=== PATIENT | female | born 1960 | race Caucasian/White ===

== ENCOUNTER 2018-04-27 12:37 | Observation (INO) | payer MEDICARE, OTHER ==
[2018-04-27] VITALS (9 sets, daily range): BP systolic 81–97; BP diastolic 50–59
[~2018-04-27] VITALS: Ht 157.5 cm; Wt 64.0 kg
--- NOTE | 2018-04-27 12:54 | ED General ---
General Stated Complaint: LOW BP/WEAKNESS Source of Information: Patient Exam Limitations: No Limitations History of Present Illness Date Seen by Provider: Apr 27, 2018 Time Seen by Provider: 12:49 Initial Comments to ER per private vehicle from Dr. Farmer's office in [place]. Reports were of low blood pressure, 90s over 50s. Patient presented to [facility] on April 17 with abdominal pain and diarrhea. A CT scan revealed colitis, she also had a urinary tract infection. She was given Omnicef. She then re-presented on the with hypotension, was admitted and released 04/23. She was given fluids but blood pressure failed to improve as expected. An echocardiogram was done revealing a moderate pericardial effusion. She was discharged, followed up with Dr. Farmer's office today, was hypotensive at his office and was referred to ER for cardiac evaluation there was some concern that she cardiology evaluation for the pericardial effusion. she denies fevers or chills. She denies chest pain or palpitations. She states that she is dyspneic on exertion which is a new symptom for about the past 1-2 weeks. Her diarrhea and abdominal pain have improved. She is still on omnicef. there is some concern but no official diagnosis of inflammatory bowel disease. Timing/Duration: 1-2 Days Severity: Moderate Associated Systoms: No Chest Pain Allergies and Home Medications Allergies Coded Allergies: No Known Drug Allergies (Unverified , 04/27/18) Patient Home Medication List Home Medication List Reviewed: Yes Review of Systems Constitutional: see HPI; No chills, No fever EENTM: see HPI Respiratory: see HPI, dyspnea on exertion; No hemoptysis, No short of breath Cardiovascular: no symptoms reported, see HPI; No chest pain Genitourinary: no symptoms reported Musculoskeletal: no symptoms reported Skin: no symptoms reported Psychiatric/Neurological: No Symptoms Reported Past Cvtptwl-Sckkwk-Ildccu Hx Patient Social History Recent Foreign Travel: No Contact w/Someone Who Travel: No Physical Exam Vital Signs Vital Signs - First Documented 04/27/18 04/27/18 12:50 17:40 Temp 98.2 Pulse 82 Resp 16 B/P (MAP) 110/69 (83) Pulse Ox 95 O2 Delivery Room Air Capillary Refill : General Appearance: No Apparent Distress, WD/WN, Other (she is in no distress. Blood pressure 117/69 on the second reading, 110/60 on the first reading. Heart rate is 70 sinus without ectopy. She speaks in full sentences without distress.) Eyes: Bilateral Eye Normal Inspection, Bilateral Eye PERRL, Bilateral Eye EOMI HEENT: PERRL/EOMI, TMs Normal Neck: Full Range of Motion, Normal Inspection, Other (there is no jugular vein distention or muffled heart tones at this time) Respiratory: Lungs Clear, Normal Breath Sounds, No Accessory Muscle Use, No Respiratory Distress Cardiovascular: Regular Rate, Rhythm, Normal Peripheral Pulses Gastrointestinal: Normal Bowel Sounds, Non Tender, Soft Extremity: Normal Capillary Refill, Normal Inspection Neurologic/Psychiatric: Alert, Oriented x3 Skin: Normal Color, Warm/Dry; No Rash Focused Exam Lactate Level 04/27/18 14:17: Lactic Acid Level 1.02 Lactic Acid Level Progress/Results/Core Measures Suspected Sepsis SIRS Temperature: Pulse: Respiratory Rate: Laboratory Tests 04/27/18 12:50: White Blood Count 5.3 Blood Pressure / Mean: 04/27/18 14:17: Lactic Acid Level 1.02 Laboratory Tests 04/27/18 12:50: Creatinine 0.89, Platelet Count 71L, Total Bilirubin 2.3H Results/Orders Lab Results Laboratory Tests Test 04/27/18 12:50 04/27/18 14:17 04/27/18 15:32 Range/Units White Blood Count 5.3 4.3-11.0 10^3/uL Red Blood Count 3.40 L 4.35-5.85 10^6/uL Hemoglobin 10.3 L 11.5-16.0 G/DL Hematocrit 31 L 35-52 % Mean Corpuscular Volume 90 80-99 FL Mean Corpuscular Hemoglobin 30 25-34 PG Mean Corpuscular Hemoglobin Concent 34 32-36 G/DL Red Cell Distribution Width 14.4 10.0-14.5 % Platelet Count 71 L 130-400 10^3/uL Mean Platelet Volume 11.3 H 7.4-10.4 FL Neutrophils (%) (Auto) 84 H 42-75 % Lymphocytes (%) (Auto) 8 L 12-44 % Monocytes (%) (Auto) 6 0-12 % Eosinophils (%) (Auto) 2 0-10 % Basophils (%) (Auto) 0 0-10 % Neutrophils # (Auto) 4.5 1.8-7.8 X 10^3 Lymphocytes # (Auto) 0.4 L 1.0-4.0 X 10^3 Monocytes # (Auto) 0.3 0.0-1.0 X 10^3 Eosinophils # (Auto) 0.1 0.0-0.3 10^3/uL Basophils # (Auto) 0.0 0.0-0.1 10^3/uL Erythrocyte Sedimentation Rate 99 H 0-30 MM/HR Sodium Level 136 135-145 MMOL/L Potassium Level 3.8 3.6-5.0 MMOL/L Chloride Level 106 98-107 MMOL/L Carbon Dioxide Level 23 21-32 MMOL/L Anion Gap 7 5-14 MMOL/L Blood Urea Nitrogen 19 H 7-18 MG/DL Creatinine 0.89 0.60-1.30 MG/DL Estimat Glomerular Filtration Rate > 60 BUN/Creatinine Ratio 21 Glucose Level 95 70-105 MG/DL Calcium Level 9.5 8.5-10.1 MG/DL Total Bilirubin 2.3 H 0.1-1.0 MG/DL Aspartate Amino Transf (AST/SGOT) 45 H 5-34 U/L Alanine Aminotransferase (ALT/SGPT) 70 H 0-55 U/L Alkaline Phosphatase 66 40-136 U/L Troponin I < 0.30 <0.30 NG/ML C-Reactive Protein High Sensitivity 7.44 H 0.00-0.50 MG/DL B-Type Natriuretic Peptide 48.2 <100.0 PG/ML Total Protein 7.2 6.4-8.2 GM/DL Albumin 3.5 3.2-4.5 GM/DL Lactic Acid Level 1.02 0.50-2.00 MMOL/L Urine Color YELLOW Urine Clarity CLEAR Urine pH 7 5-9 Urine Specific Forsan 1.010 L 1.016-1.022 Urine Protein 1+ H NEGATIVE Urine Glucose (UA) NEGATIVE NEGATIVE Urine Ketones 1+ H NEGATIVE Urine Nitrite NEGATIVE NEGATIVE Urine Bilirubin NEGATIVE NEGATIVE Urine Urobilinogen 1 NORMAL MG/DL Urine Leukocyte Esterase 1+ H NEGATIVE Urine RBC (Auto) 1+ H NEGATIVE Urine RBC 0-2 /HPF Urine WBC 0-2 /HPF Urine Squamous Epithelial Cells 5-10 /HPF Urine Crystals NONE /LPF Urine Bacteria NONE /HPF Urine Casts NONE /LPF Urine Mucus NEGATIVE /LPF Urine Culture Indicated NO My Orders Orders - TONY BALDWIN APRN Erythrocyte Sedimentation Rate (04/27/18 12:47) Hs C Reactive Protein (04/27/18 12:47) Ekg Tracing (04/27/18 12:47) Cbc With Automated Diff (04/27/18 12:47) Comprehensive Metabolic Panel (04/27/18 12:47) Ua Culture If Indicated (04/27/18 12:47) Chest 1 View, Ap/Pa Only (04/27/18 12:47) Troponin I (04/27/18 12:47) BNP (04/27/18 12:47) Blood Culture (04/27/18 14:04) Lactic Acid Analyzer (04/27/18 14:04) Anti-Nuclear Ab (Kellen) Analyzer (04/27/18 15:33) General/Regular (04/27/18 Lunch) Echo W Doppler/Color Flow (04/27/18 16:16) Vital Signs/I&O 04/27/18 04/27/18 04/27/18 04/27/18 12:50 17:24 17:36 17:38 Temp 98.2 98.2 Pulse 82 86 79 82 Resp 16 20 14 B/P (MAP) 110/69 (83) 100/56 89/55 (66) Pulse Ox 95 98 90 04/27/18 04/27/18 04/27/18 04/27/18 17:40 17:45 18:00 18:15 B/P (MAP) 81/50 (60) 82/50 (61) 89/58 (68) Pulse Ox 92 O2 Delivery Room Air 04/27/18 04/27/18 18:30 18:45 B/P (MAP) 90/59 (69) 91/55 (67) Capillary Refill : ECG Initial ECG Impression Date: Apr 27, 2018 Initial ECG Impression Time: 12:46 Initial ECG Rate: 80 Initial ECG Rhythm: Normal Sinus Initial ECG Intervals: Normal Initial ECG Impression: Normal Comment no ST segment changes to suggest ischemia or pericarditis. Normal sinus rate of 80 no ectopy normal intervals Diagnostic Imaging Diagonstic Imaging: Xray Plain Films/CT/US/NM/MRI: chest Comments NAME: MARVIN SANCHEZ [facility] REC#: [id number] PT STATUS: REG ER : 1960 PHYSICIAN: TONY BALDWIN APRN ADMIT DATE: 04/27/18/ER Draft Date of Exam:04/27/18 CHEST 1 VIEW, AP/PA ONLY Indication: Pain Comparison: None Findings: Upright portable view of the chest is obtained. Heart size is normal. The pulmonary vessels appear unremarkable. No pneumothorax or mediastinal widening. There is abnormal density in the left lung base likely combination of mild basilar atelectasis or infiltrate and small left pleural effusion. There is minimal right basilar atelectasis or infiltrate also present. Upper lungs are clear. Impression: Bilateral basilar atelectasis or infiltrate with small left pleural effusion. Dictated on workstation # [id number] Dict: 04/27/18 1307 Trans: 04/27/18 1309 CV [id number] Interpreted by: LINDEN ALTAMIRANO DO Electronically signed by: Departure Communication (Admissions) Time/Spoke to Admitting Phy: 16:[address] Ayala. He agrees to consult, echocardiogram in the morning. Spoke to Dr. Tirado she likely echocardiogram done today with results called to Dr. Ayala. Admit to cardiac stepdown. Blood pressures 100 systolic at this time. No distress. No jugular venous distention. 1502-blood pressure has been down to 92/55. Heart rate remains 70s and 80s.currently blood pressure [address] Ayala finishing up in the catheter lab and I'll discuss the case with him. Impression Primary Impression: Pericardial effusion Additional Impressions: Pleural effusion Inflammatory disorder Disposition: 01 HOME, SELF-CARE Condition: Stable Admissions Decision to Admit Reason: Admit from ER (General) Decision to Admit/Date: Apr 27, 2018 Time/Decision to Admit Time: 16:23 Departure-Patient Inst. Referrals: NO,LOCAL PHYSICIAN (PCP/Family) Primary Care Physician Copy Copies To 1: LORE FARMER MD, PETER J APRN Apr 27, 2018 12:54
[2018-04-27 13:00] LABS: BASOPHILS % (AUTO) 0 % (0-10); EOSINOPHILS # (AUTO) 0.1 10^3/uL (0.0-0.3); EOSINOPHILS % (AUTO) 2 % (0-10); HEMATOCRIT 31 % (35-52); HEMOGLOBIN 10.3 G/DL (11.5-16.0); LYMPHOCYTES # (AUTO) 0.4 X 10^3 (1.0-4.0); LYMPHOCYTES % (AUTO) 8 % (12-44); MEAN CORPUSCULAR HEMOGLOBIN 30 PG (25-34); MEAN CORPUSCULAR HGB CONC 34 G/DL (32-36); MEAN CORPUSCULAR VOLUME 90 FL (80-99); MEAN PLATELET VOLUME 11.3 FL (7.4-10.4); MONOCYTES # (AUTO) 0.3 X 10^3 (0.0-1.0); MONOCYTES % (AUTO) 6 % (0-12); NEUTROPHILS # (AUTO) 4.5 X 10^3 (1.8-7.8); NEUTROPHILS % (AUTO) 84 % (42-75); PLATELET COUNT 71 10^3/uL (130-400); RED CELL DISTRIBUTION WIDTH 14.4 % (10.0-14.5); WHITE BLOOD COUNT 5.3 10^3/uL (4.3-11.0)
[2018-04-27] MEDS ORDERED: SULF-222 (13:10)
[2018-04-27] MEDS ORDERED: CEFU500T63 (13:10)
--- NOTE | 2018-04-27 13:10 | Diagnostic Imaging Report ---
Indication: Pain Comparison: None Findings: Upright portable view of the chest is obtained. Heart size is normal. The pulmonary vessels appear unremarkable. No pneumothorax or mediastinal widening. There is abnormal density in the left lung base likely combination of mild basilar atelectasis or infiltrate and small left pleural effusion. There is minimal right basilar atelectasis or infiltrate also present. Upper lungs are clear. Impression: Bilateral basilar atelectasis or infiltrate with small left pleural effusion. Dictated by: Dictated on workstation # [id number]
[2018-04-27 13:21] LABS: ALANINE AMINOTRANSFERASE 70 U/L (0-55); ALBUMIN 3.5 GM/DL (3.2-4.5); ALKALINE PHOSPHATASE 66 U/L (40-136); BILIRUBIN,TOTAL 2.3 MG/DL (0.1-1.0); BUN/CREATININE RATIO 21; CALCIUM 9.5 MG/DL (8.5-10.1); CARBON DIOXIDE 23 MMOL/L (21-32); CHLORIDE 106 MMOL/L (98-107); CREATININE SERUM 0.89 MG/DL (0.60-1.30); GFR ESTIMATED > 60; GLUCOSE 95 MG/DL (70-105); POTASSIUM 3.8 MMOL/L (3.6-5.0); SODIUM 136 MMOL/L (135-145); TOTAL PROTEIN 7.2 GM/DL (6.4-8.2)
[2018-04-27 13:27] LABS: ERYTHROCYTE SEDIMENTATION RATE 99 MM/HR (0-30)
[2018-04-27 15:39] LABS: BILIRUBIN,URINE NEGATIVE (NEGATIVE); CLARITY,URINE CLEAR; COLOR,URINE YELLOW; GLUCOSE, URINE (UA) NEGATIVE (NEGATIVE); KETONES,URINE 1+ (NEGATIVE); LEUKOCYTE ESTERASE ,URINE 1+ (NEGATIVE); NITRITE,URINE NEGATIVE (NEGATIVE); PH,URINE 7 (5-9); PROTEIN,URINE 1+ (NEGATIVE); UROBILINOGEN,URINE 1 MG/DL (NORMAL)
[2018-04-27 15:48] LABS: RBC,URINE 0-2 /HPF; WBC,URINE 0-2 /HPF
[2018-04-27] MEDS ORDERED: NS IV 1000 ML 1,000 ML ONE (18:05)
[2018-04-27] MEDS ORDERED: CATHETER FLUSH 10 ML SYR IV PRN (18:15)
[2018-04-27] MEDS: NS IV 1000 ML 1,000 ML IV SCH (18:16)
[2018-04-27] MEDS ORDERED: RT-ALBUTEROL SULF 2.5 MG/3 ML PRE-MIX VIAL INH PRN (20:00)
[2018-04-27] MEDS: CEFDINIR 300 MG (OMNICEF) CAP PO SCH (20:53)
[2018-04-27] MEDS ORDERED: ONDANSETRON 4 MG/2 ML (SDV) Z0FRAN IVP PRN (21:00)
[2018-04-27] MEDS ORDERED: ACETAMINOPHEN 500 MG TAB (TYLENOL) PO PRN (21:00)
[2018-04-27] MEDS ORDERED: ALPRAZolam 0.25 MG (XANAX) TAB PO PRN (21:00)
[2018-04-27] MEDS ORDERED: fentaNYL INJECTION 100 MCG/2 ML AMP IVP PRN (21:00)
[2018-04-27] MEDS ORDERED: CALCIUM CARBONATE 500 MG (TUMS) TAB.CHEW PO PRN (21:00)
[2018-04-27] MEDS ORDERED: HYDROcodone/APAP 5 MG/325 MG (LORTAB) TAB PO PRN (21:00)
[2018-04-28] MEDS: NS IV 1000 ML 1,000 ML IV SCH (02:16)
[2018-04-28 03:41] LABS: BASOPHILS % (AUTO) 1 % (0-10); EOSINOPHILS # (AUTO) 0.1 10^3/uL (0.0-0.3); EOSINOPHILS % (AUTO) 2 % (0-10); HEMATOCRIT 28 % (35-52); HEMOGLOBIN 8.9 G/DL (11.5-16.0); LYMPHOCYTES # (AUTO) 0.7 X 10^3 (1.0-4.0); LYMPHOCYTES % (AUTO) 25 % (12-44); MEAN CORPUSCULAR HEMOGLOBIN 29 PG (25-34); MEAN CORPUSCULAR HGB CONC 32 G/DL (32-36); MEAN CORPUSCULAR VOLUME 91 FL (80-99); MEAN PLATELET VOLUME 11.2 FL (7.4-10.4); MONOCYTES # (AUTO) 0.4 X 10^3 (0.0-1.0); MONOCYTES % (AUTO) 14 % (0-12); NEUTROPHILS # (AUTO) 1.7 X 10^3 (1.8-7.8); NEUTROPHILS % (AUTO) 59 % (42-75); PLATELET COUNT 75 10^3/uL (130-400); RED BLOOD COUNT 3.08 10^6/uL (4.35-5.85); RED CELL DISTRIBUTION WIDTH 14.4 % (10.0-14.5); WHITE BLOOD COUNT 2.9 10^3/uL (4.3-11.0)
[2018-04-28 04:00] VITALS: BP 96/53
[2018-04-28 04:08] LABS: ALANINE AMINOTRANSFERASE 50 U/L (0-55); ALBUMIN 2.9 GM/DL (3.2-4.5); ALKALINE PHOSPHATASE 57 U/L (40-136); BILIRUBIN,TOTAL 0.9 MG/DL (0.1-1.0); BUN/CREATININE RATIO 19; CALCIUM 8.2 MG/DL (8.5-10.1); CARBON DIOXIDE 20 MMOL/L (21-32); CHLORIDE 110 MMOL/L (98-107); CREATININE SERUM 0.75 MG/DL (0.60-1.30); GFR ESTIMATED > 60; GLUCOSE 93 MG/DL (70-105); POTASSIUM 3.6 MMOL/L (3.6-5.0); SODIUM 136 MMOL/L (135-145)
--- NOTE | 2018-04-28 05:58 | Pulmonary Consultation ---
History of Present Illness History of Present Illness Date of Consultation 04/28/18 05:53 Time Seen by Provider: 05:53 Date of Admission History of Present Illness 58yo with hx of recent dx of moderate pericardial effusion and hypotension. Pt was admitted to [facility] on 04/23 and then discharged. F/u visit at Dr. Thorpe's office patient was hypotensive so she was sent to ED. Pt denies F/NS/C. No CP or palpitations. Pt does have exertional dyspnea worsening over the last 1-2 wks. Pt has also been on omnicef as an out patient. I am consulted for ICU management. Allergies and Home Medications Allergies Coded Allergies: No Known Drug Allergies (Unverified , 04/27/18) Past Ubvwpbz-Khkulg-Aixaii Hx Patient Social History Alcohol Use: Occasionally Uses Recreational Drug Use: No Smoking Status: Former Smoker Type Used: Cigarettes Former Smoker, Quit: May 07, 1992 Recent Foreign Travel: No Contact w/Someone Who Travel: No Recent Infectious Disease Expo: No Recent Hopitalizations: Yes (04-17-18 at [place] for Colitis) Physical Abuse: No Sexual Abuse: No Mistreated: No Fear: No Seasonal Allergies Seasonal Allergies: No Past Medical History Surgeries: No (neck (2 buldging discs)) Respiratory: No Pneumonia Cardiac: Yes (pericardial effusion) Neurological: No Genitourinary: No Gastrointestinal: Yes Colitis Musculoskeletal: No Endocrine: No HEENT: No Cancer: No Psychosocial: No Nursing Suicide Risk Score: 0 Integumentary: No Blood Disorders: No Adverse Reaction/Blood Tranf: No Review of Systems Time Seen by Provider: 06:14 Constitutional: Weakness, Malaise; No: Fever, Chills, Sweats, Other Exam Exam Vital Signs Date Time Temp Pulse Resp B/P (MAP) Pulse Ox O2 Delivery O2 Flow Rate FiO2 04/28/18 04:00 93 Room Air 04/28/18 01:00 79 04/28/18 00:00 93 Room Air 04/27/18 23:38 98.4 75 15 93/52 (66) 93 Room Air 04/27/18 21:00 93 Room Air 04/27/18 20:00 93 Room Air 04/27/18 19:50 98.6 78 14 97/58 (71) 93 Room Air 04/27/18 19:43 82 92 21 04/27/18 19:00 76 7/5/18 18:45 91/55 (67) 04/27/18 18:30 90/59 (69) 04/27/18 18:15 89/58 (68) 04/27/18 18:00 82/50 (61) 04/27/18 17:45 81/50 (60) 04/27/18 17:40 92 Room Air 04/27/18 17:38 82 04/27/18 17:36 98.2 79 14 89/55 (66) 90 04/27/18 17:24 86 20 100/56 98 04/27/18 12:50 98.2 82 16 110/69 (83) 95 I & O 04/28/18 06:59 Intake Total 1500 ml Output Total 1100 ml Balance 400 ml General Appearance: No Apparent Distress, WD/WN, Anxious, Other (she is in no distress. Blood pressure 117/69 on the second reading, 110/60 on the first reading. Heart rate is 70 sinus without ectopy. She speaks in full sentences without distress.) HEENT: PERRL/EOMI, TMs Normal Neck: Full Range of Motion, Normal Inspection, Other (there is no jugular vein distention or muffled heart tones at this time) Respiratory: Lungs Clear, Normal Breath Sounds, No Accessory Muscle Use, No Respiratory Distress Cardiovascular: Regular Rate, Rhythm, Normal Peripheral Pulses Capillary Refill: Less Than 3 Seconds Extremity: Normal Capillary Refill, Normal Inspection Neurologic/Psychiatric: Alert, Oriented x3 Skin: Normal Color, Warm/Dry; No Rash Results Lab Laboratory Tests 04/27/18 12:50 04/28/18 03:10 Assessment/Plan Assessment/Plan Hypotension with pericardial effusion - hyptension has improved with IVF. RN states urine is concentrated however UO has improved through the night. -Cardiology is following and is aware -Echo shows moderate pericardial effusion with no chamber collapse -Check random cortisol -LORAINE is pending -Give liter bolus of LR over 2 hrs. High ESR and CRP associated with pericardial effusion and pleural effusion - LORAINE is pending -Ill start solumedrol 125 x 1 then 40 Q6 Hypothyroid - new Dx -Start Synthroid 50 PO daily Dehydration with Metabolic acidosis -repeat lactic acid -give 1 liter bolus of LR Pancytopenia -check peripheral smear -consider oncology consult -repeat labs -PT/INR, PTT Ddimer, fibrinogen I've discussed patient and plan of care with Dr. Tirado, and Dr. Ayala. I've also discussed patient with medical staff. Secondary to pericardial effusion, hypotension, pancytopenia this is a very complex patient. Dr. Ayala recommend transferring patient for possible pericardial window and definitive diagnosis. Pt will also need to see hematology and probably rheumatology too. I have contacted [facility] for transfer and they are accepting patient for transfer. Critical Care: Critically Ill Patient Time spent with patient (mins): 120 EPIFANIO RODRÍGUEZ DO Apr 28, 2018 05:58
[2018-04-28] MEDS ORDERED: LACTATED RINGERS 1,000 ML IV ONE ×2 (06:15→06:19)
[2018-04-28] MEDS ORDERED: LACTATED RINGERS 1,000 ML IV SCH (06:15)
[2018-04-28 07:00] VITALS: BP 105/71
[2018-04-28 07:15] LABS: ABSOLUTE RETIC # 39 10e9/L (24-90); BASOPHILS % (AUTO) 1 % (0-10); EOSINOPHILS % (AUTO) 2 % (0-10); HEMATOCRIT 27 % (35-52); HEMOGLOBIN 8.7 G/DL (11.5-16.0); LYMPHOCYTES # (AUTO) 0.6 X 10^3 (1.0-4.0); LYMPHOCYTES % (AUTO) 26 % (12-44); MEAN CORPUSCULAR HEMOGLOBIN 29 PG (25-34); MEAN CORPUSCULAR HGB CONC 32 G/DL (32-36); MEAN CORPUSCULAR VOLUME 91 FL (80-99); MONOCYTES # (AUTO) 0.3 X 10^3 (0.0-1.0); MONOCYTES % (AUTO) 11 % (0-12); NEUTROPHILS # (AUTO) 1.5 X 10^3 (1.8-7.8); NEUTROPHILS % (AUTO) 61 % (42-75); PLATELET COUNT 82 10^3/uL (130-400); RED BLOOD COUNT 2.96 10^6/uL (4.35-5.85); RED CELL DISTRIBUTION WIDTH 14.2 % (10.0-14.5); WHITE BLOOD COUNT 2.4 10^3/uL (4.3-11.0)
[2018-04-28 07:27] LABS: MAGNESIUM 2.1 MG/DL (1.8-2.4); PHOSPHORUS 2.9 MG/DL (2.3-4.7)
[2018-04-28 07:41] LABS: FIBRIN DEGRADATION PRODUCTS 1.34 UG/ML (0.00-0.49); INR 1.2 (0.8-1.4); PROTHROMBIN TIME PATIENT 14.9 SEC (12.2-14.7)
[2018-04-28 07:50] LABS: ANISOCYTOSIS SLIGHT; BAND NEUTROPHILS 5 %; BASOPHILS % (MANUAL) 0 %; EOSINOPHILS % (MANUAL) 2 %; FREE T4 (FREE THYROXINE) 0.67 NG/DL (0.70-1.48); LYMPHOCYTES % (MANUAL) 19 %; MONOCYTES % (MANUAL) 4 %; NEUTROPHILS % (MANUAL) 70 %; POLYCHROMASIA SLIGHT
--- NOTE | 2018-04-28 07:58 | Diagnostic Imaging Report ---
Indication: Pleural effusion. Comparison made with prior examination of 04/27/2018. Findings: Heart size is normal. There is bibasilar atelectasis and/or pneumonitis. There is a small left pleural effusion. No pneumothorax. Mediastinum unremarkable. Impression: Bibasilar atelectasis and/or pneumonitis and small left pleural effusion. Dictated by: Dictated on workstation # [id number]
[2018-04-28 08:00] VITALS: BP 112/71
[2018-04-28] MEDS: CEFDINIR 300 MG (OMNICEF) CAP PO SCH (08:21)
[2018-04-28 08:23] VITALS: BP 112/71
[2018-04-28 09:00] VITALS: BP 116/72
[2018-04-28] MEDS ORDERED: methylPREDNISolone 125 MG (Solu-MEDROL) VIAL IVP NR (09:00)
--- NOTE | 2018-04-28 09:12 | Consultation-Cardiology ---
HPI-Cardiology Cardiology Consultation: Date of Consultation 04/28/18 Date of Admission Attending Physician Rima Toro DO Admitting Physician Chanell,Local Physician Consulting Physician Javier AYALA MD HPI: Time Seen by Provider: 09:15 Chief Complaint: Fatigue This is a 58-year-old female who sees Dr. Thorpe. On 04/17/2018 she presented to [facility] ER with colitis. She presented again to the ER on 2017 and was given IV fluids again. An echocardiogram done on 04/21/2018 showed moderate pericardial effusion. Patient continues to have hypotension with systolic blood pressure of 80 mmHg. She presented again to Dr. Thorpe's office with significant fatigue and was transferred to [facility]. She complains of weakness but denies any significant shortness of breath or chest pain. She is found to have severe hypothyroidism. Elevated inflammatory markers. Pancytopenia. Review of Systems-Cardiology Review of Systems Constitutional: As described under HPI; No As described under HPI, No no symptoms reported, No chills, No fever, No lightheadedness; malaise, tiredness Eyes: No As described under HPI, No no symptoms reported, No blindness, No blurred vision, No contact lenses, No drainage, No decreased acuity, No foreign body sensation, No pain, No vision change Ears/Nose/Throat: No As described under HPI, No no symptoms reported, No chronic hearing loss, No ear discharge, No ear pain, No nasal drainage, No ulcerations Respiratory: No no symptoms reported; As described under HPI; No As described under HPI, No cough, No orthopnea, No shortness of breath, No SOB with excertion Cardiovascular: No no symptoms reported; As described under HPI; No As described under HPI, No chest pain, No edema, No irregular heart rate, No lightheadedness, No palpitations Gastrointestinal: No no symptoms reported, No As described under HPI, No abdomen distended, No abdominal pain, No blood streaked bowels, No constipation , No diarrhea, No nausea, No vomiting, No stool coloration changes Genitourinary: No As described under HPI, No burning, No dysuria, No discharge , No frequency, No flank pain, No hematuria, No urgency : Yes : No Musculoskeletal: No no symptoms reported, No As describe under HPI, No back pain, No gout, No joint pain, No joint swelling, No muscle pain, No muscle stiffness, No neck pain, No other Skin: No no symptoms reported, No As described under HPI, No change in color, No change in hair/nails, No dryness, No lesions, No lumps, No rash, No other, No skin related problems, No ulcerations, No rash on exposed areas, No ulcerations on exposed areas Psychiatric/Neurological: No anxiety, No depression, No seizure, No focal weakness, No syncope Hematologic: No bleeding abnormalities FML-[id number] Hx Patient Social History Alcohol Use: Occasionally Uses Recreational Drug Use: No Smoking Status: Former Smoker Type Used: Cigarettes Recent Foreign Travel: No Recent Infectious Disease Expo: No Hospitalization with Isolation: Denies Physical Abuse Screen: No Sexual Abuse: No Past Medical History PMH As described under Assessment. Allergies and Home Medications Allergies Coded Allergies: No Known Drug Allergies (Unverified , 04/27/18) Home Medications Levothyroxine Sodium 50 Mcg Tablet, 50 MCG PO 0915 Prescribed by: RIMA TORO on 04/28/18 1032 Methylprednisolone Sod Succ/Pf 40 Mg/1 Ml Vial, 40 MG IV Q6HR Prescribed by: RIMA TORO on 04/28/18 1032 Patient Home Medication List Home Medication List Reviewed: Yes Physical Exam-Cardiology Physical Exam Vital Signs/I&O 04/28/18 04/28/18 04/28/18 04/28/18 01:00 04:00 04:00 06:56 Temp 98.2 Pulse 79 78 87 Resp 16 B/P (MAP) 96/53 (67) Pulse Ox 94 93 O2 Delivery Room Air Room Air 04/28/18 04/28/18 04/28/18 04/28/18 07:00 08:00 08:22 08:22 Pulse 74 87 B/P (MAP) 105/71 (82) 112/71 (85) Pulse Ox 92 92 O2 Delivery Room Air Room Air Room Air Room Air 04/28/18 04/28/18 04/28/18 04/28/18 08:23 08:38 09:00 10:00 Temp 97.9 Pulse 90 85 82 Resp 14 B/P (MAP) 112/71 (85) 116/72 (87) 122/74 (90) Pulse Ox 92 92 O2 Delivery Room Air Room Air Room Air Room Air 7/6/18 11:30 B/P (MAP) 04/28/18 00:00 Intake Total 300 ml Output Total 300 ml Balance 0 ml Capillary Refill : Less Than 3 Seconds Constitutional: appears stated age, AAO x 3; No apparent distress; well- developed, well-nourished HEENT: PERRL; No normal ENT inspection, No TMs normal, No pharynx normal, No scleral icterus (R), No scleral icterus (L), No pale conjunctivae (R), No pale conjunctivae (L), No photophobia, No TM abnormal (R), No TM abnormal (L), No pharyngeal erythema, No tonsillar exudate, No other, No discharge, No EOMI; hearing is well preserved; No hard of hearing; oral hygience is good; No ulceration, No xanthelasmas are seen Neck: No non-tender, No full range of motion, No supple, No normal inspection, No carotid bruit, No limited range of motion, No lymphadenopathy (R), No lymphadenopathy (L), No tender lateral, No tender midline, No thyromegaly, No other; carotid pulses are 2 + bilaterally; No with good upstrokes Respiratory: No accessory muscle use, No respiratory distress, No chest tender , No chest expansion is symmetric; chest is bilaterally symmetric; No lungs clear to percussion; lungs clear to auscultation; No crackles, No rhonchi, No rales, No stridor, No wheezing, No pleural rub, No other Cardiovascular: regular rate-rhythm; No irregularly irregular, No extra beats, No parasternal heave is noted, No JVD, No edema, No bradycardia, No tachycardia , No point of maximal impulse, No cardiac thrills are palpable; S1 and S2; No gallop/S3, No gallop/S4, No diastolic murmur, No systolic murmur, No friction rub, No click, No other Gastrointestinal: No tender, No soft, No round, No distended, No pulsatile mass , No organomegaly, No guarding, No rebound, No tenderness, No hernia, No mass, No audible bowel sounds, No abnormal bowel sounds, No abdominal bruits, No spleenomegaly, No other Genital/Rectal: No normal genital exam, No normal rectal exam, No heme negative stool, No normal rectal tone, No normal vaginal exam, No blood at urethral meatus, No decreased rectal tone, No heme positive stool, No tenderness , No other Extremities: No normal range of motion, No non-tender, No normal inspection, No pedal edema, No calf tenderness, No normal capillary refill, No pelvis stable , No calf tenderness, No inflammation, No pedal edema, No slow capillary refill , No swelling, No other, No abrasion, No clubbing, No cyanosis, No ecchymosis, No laceration, No no lower extremity edema bilateral, No significant edema, No tenderness, No wound Neurologic/Psychiatric: no motor/sensory deficits, alert, normal mood/affect, oriented x 3, power is 5/5 both on sides Skin: No normal color, No warm/dry, No cyanosis, No cool, No diaphoresis, No damp, No ecchymosis, No jaundice, No mottled, No pallor, No rash, No tattoos/ piercings, No ulcerations, No rash on exposed areas, No ulcerations on exposed areas, No other Data Review Labs Laboratory Tests 04/27/18 12:50: White Blood Count 5.3, Red Blood Count 3.40L, Hemoglobin 10.3L, Hematocrit 31L, Mean Corpuscular Volume 90, Mean Corpuscular Hemoglobin 30, Mean Corpuscular Hemoglobin Concent 34, Red Cell Distribution Width 14.4, Platelet Count 71L, Mean Platelet Volume 11.3H, Neutrophils (%) (Auto) 84H, Lymphocytes (%) (Auto) 8L, Monocytes (%) (Auto) 6, Eosinophils (%) (Auto) 2, Basophils (%) (Auto) 0, Neutrophils # (Auto) 4.5, Lymphocytes # (Auto) 0.4L, Monocytes # (Auto) 0.3, Eosinophils # (Auto) 0.1, Basophils # (Auto) 0.0, Erythrocyte Sedimentation Rate 99H, Sodium Level 136, Potassium Level 3.8, Chloride Level 106, Carbon Dioxide Level 23, Anion Gap 7, Blood Urea Nitrogen 19H, Creatinine 0.89, Estimat Glomerular Filtration Rate > 60, BUN/Creatinine Ratio 21, Glucose Level 95, Calcium Level 9.5, Total Bilirubin 2.3H, Aspartate Amino Transf (AST/SGOT) 45H, Alanine Aminotransferase (ALT/SGPT) 70H, Alkaline Phosphatase 66, Troponin I < 0.30, C-Reactive Protein High Sensitivity 7.44H, B-Type Natriuretic Peptide 48.2, Total Protein 7.2, Albumin 3.5 04/27/18 14:17: Lactic Acid Level 1.02 04/27/18 15:32: Urine Color YELLOW, Urine Clarity CLEAR, Urine pH 7, Urine Specific [place] 1.010L, Urine Protein 1+H, Urine Glucose (UA) NEGATIVE, Urine Ketones 1+H, Urine Nitrite NEGATIVE, Urine Bilirubin NEGATIVE, Urine Urobilinogen 1, Urine Leukocyte Esterase 1+H, Urine RBC (Auto) 1+H, Urine RBC 0-2, Urine WBC 0-2, Urine Squamous Epithelial Cells 5-10, Urine Crystals NONE, Urine Bacteria NONE, Urine Casts NONE, Urine Mucus NEGATIVE, Urine Culture Indicated NO 04/28/18 03:10: White Blood Count 2.9L, Red Blood Count 3.08L, Hemoglobin 8.9L, Hematocrit 28L, Mean Corpuscular Volume 91, Mean Corpuscular Hemoglobin 29, Mean Corpuscular Hemoglobin Concent 32, Red Cell Distribution Width 14.4, Platelet Count 75L, Mean Platelet Volume 11.2H, Neutrophils (%) (Auto) 59, Lymphocytes (%) (Auto) 25 , Monocytes (%) (Auto) 14H, Eosinophils (%) (Auto) 2, Basophils (%) (Auto) 1, Neutrophils # (Auto) 1.7L, Lymphocytes # (Auto) 0.7L, Monocytes # (Auto) 0.4, Eosinophils # (Auto) 0.1, Basophils # (Auto) 0.0, Sodium Level 136, Potassium Level 3.6, Chloride Level 110H, Carbon Dioxide Level 20L, Anion Gap 6, Blood Urea Nitrogen 14, Creatinine 0.75, Estimat Glomerular Filtration Rate > 60, BUN/ Creatinine Ratio 19, Glucose Level 93, Calcium Level 8.2L, Total Bilirubin 0.9, Aspartate Amino Transf (AST/SGOT) 29, Alanine Aminotransferase (ALT/SGPT) 50, Alkaline Phosphatase 57, Total Protein 6.0L, Albumin 2.9L 04/28/18 07:00: White Blood Count 2.4L, Red Blood Count 2.96L, Hemoglobin 8.7L, Hematocrit 27L, Mean Corpuscular Volume 91, Mean Corpuscular Hemoglobin 29, Mean Corpuscular Hemoglobin Concent 32, Red Cell Distribution Width 14.2, Platelet Count 82L, Mean Platelet Volume 11.0H, Neutrophils (%) (Auto) 61, Lymphocytes (%) (Auto) 26 , Monocytes (%) (Auto) 11, Eosinophils (%) (Auto) 2, Basophils (%) (Auto) 1, Neutrophils # (Auto) 1.5L, Lymphocytes # (Auto) 0.6L, Monocytes # (Auto) 0.3, Eosinophils # (Auto) 0.0, Basophils # (Auto) 0.0, Neutrophils % (Manual) 70, Lymphocytes % (Manual) 19, Monocytes % (Manual) 4, Eosinophils % (Manual) 2, Basophils % (Manual) 0, Band Neutrophils 5, Polychromasia SLIGHT, Anisocytosis SLIGHT, Absolute Reticulocyte Count 39, Percent Reticulocyte Count 1.30, Prothrombin Time 14.9H, INR Comment 1.2, Activated Partial Thromboplast Time 29 , Fibrinogen 445, D-Dimer 1.34H, Lactic Acid Level 0.74, Phosphorus Level 2.9, Magnesium Level 2.1, Thyroid Stimulating Hormone (TSH) 27.80H, Free Thyroxine 0.67L ECG Impression ECG Initial ECG Rhythm: Normal Sinus A/P-Cardiology Assessment/Admission Diagnosis Myxedema, Elevated inflammatory markers, Pancytopenia, Moderate pericardial effusion, Dehydration Plan Myxedema: Patient was started on Synthroid and given Solu-Medrol. Fatigue: Likely secondary to severe hypothyroidism. Elevated inflammatory markers: Might require rheumatology evaluation. Evidence of serositis with pericardial effusion and pleural effusion. Pancytopenia: Will require hematology input. Moderate pericardial effusion: No tamponade physiology. Concentric pericardial effusion however located posteriorly with diameter 1.7 cm. Anteriorly on the 0.9 cm. No indication of pericardiocentesis at this point in time. However pericardial window May be better since the pericardial effusion is more posteriorly than anteriorly and tissue diagnosis may be required. Collapsed IVC suggest significant dehydration. Overnight IV fluids were given which improved systolic blood pressure from 80 mmHg to 112 mmHg this morning. May require transfer to tertiary care center for complete workup. Discussed with Dr. Toro and Dr. Workman. Complicated patient. Thank you for your consultation. Please call me if you have any questions. Zoltan Ayala MD, FACP, FACC, FSCAI, FHRS, CCDS Interventional Cardiology Cardiac Electrophysiology Vascular Medicine and Endovascular Interventions Clinical Quality Measures DVT/VTE Risk/Contraindication: Risk Factor Score Per Nursin RFS Level Per Nursing on Admit: 1=Low/No VTE PPX Javier AYALA MD Apr 28, 2018 09:12
[2018-04-28] MEDS ORDERED: LEVOTHYROXINE 50 MCG (LEVOTHROID) TAB PO NR (09:15)
[2018-04-28 10:00] VITALS: BP_SYST 122; BP_SYST 124; BP_DIAS 74; BP_DIAS 83
--- NOTE | 2018-04-28 10:26 | History & Physical-Hospitalist ---
History of Present Illness HPI/Chief Complaint CC: Hypotension and weakness HPI: This is a 58-year-old white female who sees Dr. Thorpe in [place], [place] who had been in her usual state of health until 04/17/18 when she presented to the [facility] ER found to have colitis given IV fluids and then discharged but then again on 04/23/18 at the ER given IV fluids then discharged with close follow-up with Dr. Thorpe but when he saw her yesterday she was found to have continued hypotension and considering a recent diagnosis of pericardial effusion noted on echocardiogram read by Dr. Dye on 04/21/18 she was referred to via [facility] ER for further evaluation. Patient was found to have a normal lactic acid but hypotension in the 80 range so echocardiogram was obtained showing a moderate pericardial effusion and cardiology was consulted along with Dr. Workman. Her C reactive protein and sedimentation rate were both elevated and Dr. Workman checked a TSH revealing elevation in levels of 27 and free T4 0.61 so she was placed on thyroid supplement. Also on labs today revealed pancytopenia of unknown source so it was assessed by all consultants that she required a higher level of care and possible of pericardial window and that was in process by Dr. Workman in order to transfer to higher level of care. When I interviewed her she had her on speaker phone asking questions during the exam so is very difficult to answer all of his questions via speaker phone and talked to the patient and updated her on the details so tried to reassure both the patient and the on speaker phone and I inquired if he was coming in to see her to talk in more detail but he was working. Patient was given IV fluid resuscitation due to IVC collapse noted on echocardiogram consistent with hypovolemia and she has increased her urinary output since that time. She was also given Solu-Medrol in case this was severe myxedema status with the hypothyroidism new diagnosis in order to support cortisol levels. Source: patient, RN/MD Exam Limitations: no limitations Date Seen 04/28/18 Time Seen by Provider: 09:30 Attending Physician Rima Toro DO PCP No,Local Physician Referring Physician Date of Admission Apr 27, 2018 at 16:24 Home Medications & Allergies Home Medications Reviewed patient Home Medication Reconciliation performed by pharmacy medication reconciliations coroner technician and/or nursing. Patients Allergies have been reviewed. Allergies Allergies Coded Allergies No Known Drug Allergies (Unverified04/27/18) Past Pktdoyn-Wyaghw-Noopal Hx Past Med/Social Hx: Reviewed Nursing Past Med/Soc Hx, Reviewed and Corrections made Patient Social History Marrital Status: Employed/Student: employed ([employer] helps her ) Alcohol Use: Occasionally Uses Recreational Drug Use: No Smoking Status: Former Smoker Former Smoker, Quit: May 07, 1992 Type Used: Cigarettes Physical Abuse Screen: No Sexual Abuse: No Recent Foreign Travel: No Contact w/other who traveled: No Recent Hopitalizations: Yes (04-17-18 at [place] for Colitis) Recent Infectious Disease Expo: No Seasonal Allergies Seasonal Allergies: No Past Medical History Gastrointestinal: Colitis History of Blood Disorders: No Adverse Reaction to Blood [place]: No Family History No Pertinent Family Hx Review of Systems Constitutional: see HPI, dizziness, malaise EENTM: no symptoms reported Respiratory: no symptoms reported Cardiovascular: no symptoms reported Gastrointestinal: diarrhea Genitourinary: decreased output Musculoskeletal: back pain Skin: no symptoms reported Psychiatric/Neurological: No Symptoms Reported All Other Systems Reviewed Negative Unless Noted: Yes Physical Exam Physical Exam Vital Signs Vital Signs - First Documented 04/27/18 04/27/18 04/27/18 12:50 17:40 19:43 Temp 98.2 Pulse 82 Resp 16 B/P (MAP) 110/69 (83) Pulse Ox 95 O2 Delivery Room Air FiO2 21 Capillary Refill : Less Than 3 Seconds Height, Weight, BMI 5 , 2.00 , [phone] ,141 , 3.0 , [id number] Stated , 25.1 General Appearance: No Apparent Distress, WD/WN, Chronically ill, Thin Eyes: Bilateral Eye Normal Inspection, Bilateral Eye PERRL HEENT: PERRL/EOMI, TMs Normal, Normal ENT Inspection, Pharynx Normal Neck: Full Range of Motion, Normal Inspection, Non Tender, Supple, Carotid Bruit Respiratory: Chest Non Tender, Lungs Clear, Normal Breath Sounds, No Accessory Muscle Use, No Respiratory Distress Cardiovascular: Regular Rate, Rhythm, No Edema, No Gallop, No JVD, No Murmur, Normal Peripheral Pulses, Other (diminished heart sounds noted) Gastrointestinal: Normal Bowel Sounds, No Organomegaly, No Pulsatile Mass, Non Tender, Soft Back: Normal Inspection, No CVA Tenderness, No Vertebral Tenderness Extremity: Normal Capillary Refill, Normal Inspection, Normal Range of Motion, Non Tender, No Calf Tenderness, No Pedal Edema Neurologic/Psychiatric: Alert, Oriented x3, No Motor/Sensory Deficits, Normal Mood/Affect Skin: Normal Color, Warm/Dry Lymphatic: No Adenopathy Results Results/Procedures Labs Laboratory Tests 04/27/18 12:50 04/28/18 03:10 04/28/18 07:00 Patient resulted labs reviewed. Assessment/Plan Admission Diagnosis Hypotension Pericardial effusion moderate New onset hypothyroidism possible early myxedema status New onset pancytopenia Hypovolemia Plan: Transfer to higher level of care Thyroid supplement along with one dose of Solumedrol May need pericardial effusion Admission Status: Inpatient Order (span 2 midnights) Reason for Inpatient Admission: Hypotension with pericardial effusion will require more than 2 midnights to manage Diagnosis/Problems Diagnosis/Problems (1) Pericardial effusion Status: Acute (2) Hypothyroidism Status: Acute Qualifiers: Hypothyroidism type: unspecified Qualified Codes: E03.9 - Hypothyroidism, unspecified (3) Colitis Status: Acute (4) Dehydration Status: Acute (5) Pleural effusion Status: Acute (6) Inflammatory disorder Status: Acute (7) Pancytopenia Status: Acute Clinical Quality Measures DVT/VTE Risk/Contraindication: Risk Factor Score Per Nursin RFS Level Per Nursing on Admit: 1=Low/No VTE PPX RIMA TORO DO Apr 28, 2018 10:26
[2018-04-28] MEDS ORDERED: LEVO50TA PO (10:32)
[2018-04-28] MEDS ORDERED: METH40VI2 IV (10:32)
--- NOTE | 2018-04-28 10:34 | Discharge Summary-Hospitalist ---
Diagnosis/Chief Complaint Date of Admission Apr 27, 2018 at 16:24 Date of Discharge Discharge Date: Apr 28, 2018 Admission Diagnosis Hypotension Pericardial effusion moderate New onset hypothyroidism possible early myxedema status New onset pancytopenia Hypovolemia Plan: Transfer to higher level of care Thyroid supplement along with one dose of Solumedrol May need pericardial effusion Discharge Diagnosis (1) Pericardial effusion Status: Acute (2) Hypothyroidism Status: Acute (3) Colitis Status: Acute (4) Dehydration Status: Acute (5) Pleural effusion Status: Acute (6) Inflammatory disorder Status: Acute (7) Pancytopenia Status: Acute Discharge Summary Discharge Physical Exam Allergies: Coded Allergies: No Known Drug Allergies (Unverified , 04/27/18) Vitals & I&Os Vital Signs Date Time Temp Pulse Resp B/P (MAP) Pulse Ox O2 Delivery O2 Flow Rate FiO2 04/28/18 09:00 85 116/72 (87) Room Air 04/28/18 08:38 92 04/28/18 08:23 97.9 14 04/27/18 19:43 21 General Appearance: Alert, Oriented X3, Cooperative Respiratory: Clear to Auscultation, Normal Air Movement Cardiovascular: Regular Rate Neuro: Normal Gait, Normal Speech, Strength at 5/5 X4 Ext Psych/Mental Status: Other (flat affect) Hospital Course Hospital course: Patient had a brief hospital course she was placed in cardiac stepdown due to pericardial effusion and consulted pulmonology and cardiology. Elevated TSH noted patient started on supplement along with Solu-Medrol for cortisol support. Inflammatory markers and new onset pancytopenia gave rise to multiple other sources of her issues and may very well need a pericardial window so she was found to need higher level of care and [facility] was graciously excepting the patient for admission. Labs (last 24 hrs) Laboratory Tests 04/27/18 12:50: White Blood Count 5.3, Red Blood Count 3.40L, Hemoglobin 10.3L, Hematocrit 31L, Mean Corpuscular Volume 90, Mean Corpuscular Hemoglobin 30, Mean Corpuscular Hemoglobin Concent 34, Red Cell Distribution Width 14.4, Platelet Count 71L, Mean Platelet Volume 11.3H, Neutrophils (%) (Auto) 84H, Lymphocytes (%) (Auto) 8L, Monocytes (%) (Auto) 6, Eosinophils (%) (Auto) 2, Basophils (%) (Auto) 0, Neutrophils # (Auto) 4.5, Lymphocytes # (Auto) 0.4L, Monocytes # (Auto) 0.3, Eosinophils # (Auto) 0.1, Basophils # (Auto) 0.0, Erythrocyte Sedimentation Rate 99H, Sodium Level 136, Potassium Level 3.8, Chloride Level 106, Carbon Dioxide Level 23, Anion Gap 7, Blood Urea Nitrogen 19H, Creatinine 0.89, Estimat Glomerular Filtration Rate > 60, BUN/Creatinine Ratio 21, Glucose Level 95, Calcium Level 9.5, Total Bilirubin 2.3H, Aspartate Amino Transf (AST/SGOT) 45H, Alanine Aminotransferase (ALT/SGPT) 70H, Alkaline Phosphatase 66, Troponin I < 0.30, C-Reactive Protein High Sensitivity 7.44H, B-Type Natriuretic Peptide 48.2, Total Protein 7.2, Albumin 3.5 04/27/18 14:17: Lactic Acid Level 1.02 04/27/18 15:32: Urine Color YELLOW, Urine Clarity CLEAR, Urine pH 7, Urine Specific [place] 1.010L, Urine Protein 1+H, Urine Glucose (UA) NEGATIVE, Urine Ketones 1+H, Urine Nitrite NEGATIVE, Urine Bilirubin NEGATIVE, Urine Urobilinogen 1, Urine Leukocyte Esterase 1+H, Urine RBC (Auto) 1+H, Urine RBC 0-2, Urine WBC 0-2, Urine Squamous Epithelial Cells 5-10, Urine Crystals NONE, Urine Bacteria NONE, Urine Casts NONE, Urine Mucus NEGATIVE, Urine Culture Indicated NO 04/28/18 03:10: White Blood Count 2.9L, Red Blood Count 3.08L, Hemoglobin 8.9L, Hematocrit 28L, Mean Corpuscular Volume 91, Mean Corpuscular Hemoglobin 29, Mean Corpuscular Hemoglobin Concent 32, Red Cell Distribution Width 14.4, Platelet Count 75L, Mean Platelet Volume 11.2H, Neutrophils (%) (Auto) 59, Lymphocytes (%) (Auto) 25 , Monocytes (%) (Auto) 14H, Eosinophils (%) (Auto) 2, Basophils (%) (Auto) 1, Neutrophils # (Auto) 1.7L, Lymphocytes # (Auto) 0.7L, Monocytes # (Auto) 0.4, Eosinophils # (Auto) 0.1, Basophils # (Auto) 0.0, Sodium Level 136, Potassium Level 3.6, Chloride Level 110H, Carbon Dioxide Level 20L, Anion Gap 6, Blood Urea Nitrogen 14, Creatinine 0.75, Estimat Glomerular Filtration Rate > 60, BUN/ Creatinine Ratio 19, Glucose Level 93, Calcium Level 8.2L, Total Bilirubin 0.9, Aspartate Amino Transf (AST/SGOT) 29, Alanine Aminotransferase (ALT/SGPT) 50, Alkaline Phosphatase 57, Total Protein 6.0L, Albumin 2.9L 04/28/18 07:00: White Blood Count 2.4L, Red Blood Count 2.96L, Hemoglobin 8.7L, Hematocrit 27L, Mean Corpuscular Volume 91, Mean Corpuscular Hemoglobin 29, Mean Corpuscular Hemoglobin Concent 32, Red Cell Distribution Width 14.2, Platelet Count 82L, Mean Platelet Volume 11.0H, Neutrophils (%) (Auto) 61, Lymphocytes (%) (Auto) 26 , Monocytes (%) (Auto) 11, Eosinophils (%) (Auto) 2, Basophils (%) (Auto) 1, Neutrophils # (Auto) 1.5L, Lymphocytes # (Auto) 0.6L, Monocytes # (Auto) 0.3, Eosinophils # (Auto) 0.0, Basophils # (Auto) 0.0, Neutrophils % (Manual) 70, Lymphocytes % (Manual) 19, Monocytes % (Manual) 4, Eosinophils % (Manual) 2, Basophils % (Manual) 0, Band Neutrophils 5, Polychromasia SLIGHT, Anisocytosis SLIGHT, Absolute Reticulocyte Count 39, Percent Reticulocyte Count 1.30, Prothrombin Time 14.9H, INR Comment 1.2, Activated Partial Thromboplast Time 29 , Fibrinogen 445, D-Dimer 1.34H, Lactic Acid Level 0.74, Phosphorus Level 2.9, Magnesium Level 2.1, Thyroid Stimulating Hormone (TSH) 27.80H, Free Thyroxine 0.67L Patient resulted labs reviewed. Pending Labs Laboratory Tests 04/28/18 03:10: White Blood Count 2.9, Red Blood Count 3.08, Hemoglobin 8.9, Hematocrit 28, Mean Corpuscular Volume 91, Mean Corpuscular Hemoglobin 29, Mean Corpuscular Hemoglobin Concent 32, Red Cell Distribution Width 14.4, Platelet Count 75, Mean Platelet Volume 11.2, Neutrophils (%) (Auto) 59, Lymphocytes (%) (Auto) 25 , Monocytes (%) (Auto) 14, Eosinophils (%) (Auto) 2, Basophils (%) (Auto) 1, Neutrophils # (Auto) 1.7, Lymphocytes # (Auto) 0.7, Monocytes # (Auto) 0.4, Eosinophils # (Auto) 0.1, Basophils # (Auto) 0.0, Sodium Level 136, Potassium Level 3.6, Chloride Level 110, Carbon Dioxide Level 20, Anion Gap 6, Blood Urea Nitrogen 14, Creatinine 0.75, Estimat Glomerular Filtration Rate > 60, BUN/ Creatinine Ratio 19, Glucose Level 93, Calcium Level 8.2, Total Bilirubin 0.9, Aspartate Amino Transf (AST/SGOT) 29, Alanine Aminotransferase (ALT/SGPT) 50, Alkaline Phosphatase 57, Total Protein 6.0, Albumin 2.9 04/28/18 07:00: White Blood Count 2.4, Red Blood Count 2.96, Hemoglobin 8.7, Hematocrit 27, Mean Corpuscular Volume 91, Mean Corpuscular Hemoglobin 29, Mean Corpuscular Hemoglobin Concent 32, Red Cell Distribution Width 14.2, Platelet Count 82, Mean Platelet Volume 11.0, Neutrophils (%) (Auto) 61, Lymphocytes (%) (Auto) 26 , Monocytes (%) (Auto) 11, Eosinophils (%) (Auto) 2, Basophils (%) (Auto) 1, Neutrophils # (Auto) 1.5, Lymphocytes # (Auto) 0.6, Monocytes # (Auto) 0.3, Eosinophils # (Auto) 0.0, Basophils # (Auto) 0.0, Neutrophils % (Manual) 70, Lymphocytes % (Manual) 19, Monocytes % (Manual) 4, Eosinophils % (Manual) 2, Basophils % (Manual) 0, Band Neutrophils 5, Polychromasia SLIGHT, Anisocytosis SLIGHT, Absolute Reticulocyte Count 39, Percent Reticulocyte Count 1.30, Prothrombin Time 14.9, INR Comment 1.2, Activated Partial Thromboplast Time 29, Fibrinogen 445, D-Dimer 1.34, Lactic Acid Level 0.74, Phosphorus Level 2.9, Magnesium Level 2.1, Thyroid Stimulating Hormone (TSH) 27.80, Free Thyroxine 0.67, Cortisol AM Sample [Pending] Discussion & Recommendations Discharge Planning: <30 minutes discharge planning Discharge Home Medications: Active Scripts Active Synthroid (Levothyroxine Sodium) 50 Mcg Tablet 50 Mcg PO 0915 1 Days Solu-Medrol 40 mg Vial (Methylprednisolone Sod Succ/Pf) 40 Mg/1 Ml Vial 40 Mg IV Q6HR 1 Days Instructions to patient/family Please see electronic discharge instructions given to patient. Clinical Quality Measures DVT/VTE Risk/Contraindication: Risk Factor Score Per Nursin RFS Level Per Nursing on Admit: 1=Low/No VTE PPX Problem Qualifiers (1) Hypothyroidism: Hypothyroidism type: unspecified Qualified Codes: E03.9 - Hypothyroidism, unspecified BARBARA TORO DO Apr 28, 2018 10:34
[2018-04-28] MEDS ORDERED: methylPREDNISolone 40 MG/ML (Solu-MEDROL) VIAL IV SCH (12:00)
[2018-04-29] MEDS ORDERED: LEVOTHYROXINE 50 MCG (LEVOTHROID) TAB PO ONE (06:30)
== END 2018-04-28 10:32 | disposition short-term general hospital (02) ==
LOC: EDUNIT# 12:37 → ER 12:40 → ICU 16:24 → UNDOADMIN 16:24 → ICU 17:30 → UNDODISIN 04-28 11:30
PROVIDERS: ADMIT Internal Medicine; ATTEND Internal Medicine
DX: I31.3 Pericardial effusion (noninflammatory) (principal); E03.9 Hypothyroidism, unspecified; E86.0 Dehydration; D61.818 Other pancytopenia; K52.9 Noninfective gastroenteritis and colitis, unspecified; J90 Pleural effusion, not elsewhere classified; Z87.891 Personal history of nicotine dependence
CPT/HCPCS: 36415; 71045; 80053; 81000; 82533; 83605; 83735; 83880; 84100; 84439; 84443; 84484; 85007; 85025; 85027; 85045; 85379; 85384; 85610; 85652; 85730; 86038; 86141; 87040; 93005; 93306; 94664; G0378